=== PATIENT | male | born 1950 | race Caucasian/White ===

== ENCOUNTER 2017-05-07 08:54 | Day surgery (SDC) | payer MEDICARE, OTHER ==
--- NOTE | 2017-05-07 09:29 | OR ---
Anesthesia Pre Procedure Eval Date of Service: 05/07/17 Pre Procedure Evaluation: Last Vital Signs Temp 36.6 C 05/07/17 09:13 Pulse 76 05/07/17 09:13 Resp 16 05/07/17 09:13 BP 123/72 05/07/17 09:13 Pulse Ox 100 05/07/17 09:13 Anesthesia Pre Procedure Evaluation DATE: 05/07/2017 TIME: 9:25 AM INDICATIONS: Disc bulge with stenosis low-back pain and left radicular pain PAST MEDICAL HISTORY: Long history of multiple spine pain issues. He has been treated with therapy medication and the steroid injections, of which he received most relief with past steroid injections. Currently he is suffering with both neck and low back pain however today he is being seen for his low back and left radicular pain issues. As of recent this time her pain has been in the left hip which does radiate down as low as the left mid tibial region. He is also had some relatively severe pain and coccyx region as well. History of GERD: No History of smoking: No History of sleep apnea: No EXAM: Heart S1-S2 regular; lungs clear bilaterally ASSESSMENT OF MEDICAL STATUS: Appropriate candidate for epidural steroid injection. Considering his past history of being unable to lie prone without severe neck pain I discussed the procedure with him in depth. It was agreed that he most likely way of efficiently performing the procedure would be to do in the sitting position and bring of the C-arm and after the epidural space is identified with loss of resistance. Patient understands the procedure and risk. PLANNED PROCEDURE: Lumbar steroid epidural injection Home Medications: HOME MEDICATIONS clonazePAM [Klonopin] 0.5 mg PO BID 10/01/14 [Last Taken 06/01/15] Doxazosin Mesylate [Cardura] 1 mg PO DAILY 03/08/17 [Last Taken Unknown] Loratadine [Claritin] 10 mg PO DAILY 05/06/17 [Last Taken Unknown]
[2017-05-07] MEDS: LIDOCAINE HCL/PF 5 ML VIAL IJ ONE (09:38)
[2017-05-07] MEDS: IOPAMIDOL 20 ML VIAL IJ ONE (09:38)
[2017-05-07] MEDS: DEXAMETHASONE SOD PHOSPHATE 10 MG/ML VIAL IJ ONE (09:38)
--- NOTE | 2017-05-07 10:04 | OR ---
Anesthesia Procedure Note - Anesthesia Procedure Note Date of Service: 05/07/17 Narrative: Vital Signs - Last Taken Temp 36.6 C 05/07/17 09:13 Pulse 76 05/07/17 09:13 Resp 16 05/07/17 09:13 BP 123/72 05/07/17 09:13 Pulse Ox 100 05/07/17 09:13 05/07/17 10:02 ANESTHESIA PROCEDURE NOTE Date of Procedure: 05/07/2017 Time of procedure: 9:35 AM. Performed by: NGUYEN Gagnon CRNAP, MSN Stave And Bolt Equalizer: Sophia Cunha RN. Preprocedure diagnosis: Degenerative disc disease, disc bulge low back pain and left radicular pain. Post procedure diagnosis: Same. Procedure: Epidural Steroid Injection L4 5. Indications: Low back pain and left radicular pain. Findings: See below. Details of the procedure: After the MRI report and films were reviewed, the patient was interviewed where risks and the procedure were explained. The patient was then brought to over #3 and was placed in the sitting position. The back was prepped with DuraPrep and draped in a sterile fashion. The lumbar area was identified under fluoroscopy and the L4 5 space was localized with 1% lidocaine solution. The epidural space was identified using loss of resistance technique using a #20-gauge Touhy needle. 1 mL of Isovue was injected while the C-arm was positioned in the lateral orientation. The C-arm was then readjusted to an AP view and Isovue 200 1 milliliters was injected demonstrating a spread at the affected area. Dexamethasone 10mg and lidocaine 1 % 5 mL was injected, stylette was replaced and the epidural needle removed. A Band-Aid was then applied to the injection site, patient was placed in a left lateral position for 5 minutes then returned to ASU with good relief of pain, from a thigh/10 to to/10. EBL: None. Energy: 13.9 Seconds, 5.85 mGy Fluids: N/A. Specimen: N/A. Post procedure condition: The patient tolerated the procedure well. No complications were noted. Thank you for this consultation. Alexei Wagner CRNA, MSN, HELP DESK ADMINISTRATOR
[2017-05-07 10:38] VITALS: BP 116/54
== END 2017-05-07 08:55 | disposition home or self-care (01) ==
LOC: AMB 08:54
PROVIDERS: ATTEND Nurse Practitioner
PROC: 3E0S3BZ Introduction of Anesthetic Agent into Epidural Space, Percutaneous Approach (ICD-10-PCS; 2017-05-07)
PROC: 3E0S33Z Introduction of Anti-inflammatory into Epidural Space, Percutaneous Approach (ICD-10-PCS; principal; 2017-05-07 09:30)
DX: M51.36 Other intervertebral disc degeneration, lumbar region (principal); M51.26 Other intervertebral disc displacement, lumbar region; Z68.1 Body mass index [BMI] 19.9 or less, adult